=== PATIENT | female | born 1990 | race Caucasian/White ===

== ENCOUNTER 2017-06-29 14:25 | Outpatient (CLI) | END 2017-06-29 18:50 | disposition home or self-care (01) ==

== ENCOUNTER 2017-07-02 12:42 | Outpatient (CLI) | END 2017-07-02 15:41 | disposition home or self-care (01) ==

== ENCOUNTER 2017-08-15 05:50 | Inpatient (IN) | END 2017-08-18 18:25 | disposition home or self-care (01) | DRG 765 ==